=== PATIENT | female | born 1940 ===

== ENCOUNTER 2017-02-23 12:30 | Inpatient (IN) | payer MEDICARE, OTHER ==
[~2017-02-23] VITALS: Ht 163.8 cm; Wt 90.2 kg
--- NOTE | ~2017-02-23 | DS ---
PATIENT'S NAME: KAI POTTS [facility] AGE: 76 Y [address] ROOM: [address] [place], [place] [address] [facility]ATION: [facility] ADMIT DATE: 02/23/2017 Discharge Summary DISCHARGE DATE: 02/26/2017 FAMILY PHYSICIAN: Mindy Ngo APRN ATTENDING PHYSICIAN: Kei Coppola CONSULTING PHYSICIANS: 1. Alexander Tan MD. 2. Ronnie Banks MD. DISCHARGE DIAGNOSES: 1. Right thalamic infarct with left hemiparesis. 2. Accelerated hypertension with permissive hypertension. 3. Hypernatremia, resolved. 4. Acute kidney injury, resolved. HOSPITAL COURSE: Please refer to admitting history and physical as dictated by Dr. Coppola. Briefly, the patient was admitted to [facility] with left hemiparesis. Outside hospital CT scan showed a right thalamic infarct. She was not a candidate for tPA. She had accelerated hypertension. This was allowed to continue for permissive hypertension. Echocardiogram was done which did show an EF of 60%, left atrium mildly dilated, grade 1 diastolic dysfunction. Carotid Dopplers were obtained which showed no evidence of internal carotid artery plaque or stenosis on the right. Left internal carotid artery was mild 1-39% plaque and stenosis. PT, OT and ST were all consulted. She was placed on heparin for DVT prophylaxis. Dr. Banks did see the patient and did accept the patient to inpatient rehab. She was placed on a baby aspirin and atorvastatin. On 02/24/2017, the patient's blood pressure was noted to be greater than 200. She was given a 1 time dose of felodipine 5 mg. Her pressures then dropped systolically into the 160s and she was dizzy. She was noted to have increased left-sided weakness. She was given saline and her pressures did come back up. Her dizziness resolved. Her left-sided weakness did return to baseline. It was recommended that we decrease her blood pressure very slowly. She was started on bowel regimen. On 02/25/2017, she was given a dose of amlodipine 2.5 mg p.o. daily. The following day this was increased to 5 mg p.o. daily. Her systolic blood pressure ranged from 163-200 on the day of discharge. She continued to have left hemiparesis. She was working with therapies. Her vital signs were stable. She was afebrile. It was felt as though she was stable to be transferred to [facility] inpatient Rehab. LABORATORY DATA: Sodium 144 to 145, potassium 3.7, BUN 16 to 20, creatinine 1.0 to 1.1. Total cholesterol 157, triglycerides 65, LDL 87. Troponin less than 0.040 upon admit then 0.047. Hemoglobin A1c 6.2, WBC 10.6, hemoglobin 13.2, hematocrit 41.8. PATIENT'S NAME: KAI POTTS [facility] AGE: 76 Y [address] ROOM: [place] [address] LOCATION: [facility] ADMIT DATE: 02/23/2017 Discharge Summary DISCHARGE DATE: 02/26/2017 FAMILY PHYSICIAN: Mindy Ngo APRN ATTENDING PHYSICIAN: Kei Coppola RADIOLOGY DATA: Please refer to hospital course. DISCHARGE INSTRUCTIONS: 1. The patient will be discharged to [facility] inpatient rehab by Dr. Banks to follow. 2. Diet regular. 3. Weightbearing as tolerated with assistance. 4. PT, OT, ST to evaluate and treat as indicated. 5. Oxygen as needed to keep sats greater than 90%. 6. Call hospitalist if the systolic blood pressure is greater than 200. 7. Rehab potential good. 8. Discharge potential good. DISCHARGE MEDICATIONS: 1. Norvasc 5 mg p.o. daily. Hold if systolic blood pressure is less than 110. 2. Aspirin 81 mg p.o. daily. 3. Lipitor 40 mg p.o. daily. 4. Colace 100 mg p.o. daily. 5. Heparin 5000 units subcu t.i.d. 6. Protonix 40 mg p.o. daily. 7. MiraLax 17 g p.o. daily. 8. Tylenol 650 mg p.o. every 4 hours as needed for pain. 9. Milk of magnesia 30 mL p.o. daily p.r.n. constipation. 10. Multivitamin 1 tablet p.o. daily. 11. [place] nasal spray 2 sprays each nares as needed. 12. Metformin 500 mg p.o. b.i.d. Thank you for allowing us to participate in the care of this patient as she has been hospitalized at [facility]. HARISH NASH APRN FOR MD PHILIP BRENNAN/modl /[id number] d: 02/27/17 0519 t: 03/07/17 1507, DISCHARGE SUMMARY
--- NOTE | ~2017-02-23 | CON ---
PATIENT'S NAME: KATLYN [facility] AGE: 76 Y [address] ROOM: [address] [address] LOCATION: [facility] ADMIT DATE: 02/23/2017 Consultation DISCHARGE DATE: FAMILY PHYSICIAN: Mindy Ngo APRN ATTENDING PHYSICIAN: LUIS ROJAS REFERRING PHYSICIAN: LIONEL VILLANUEVA MD Consult for Dr. Rojas, hospitalist. HISTORY OF PRESENT ILLNESS: This pleasant 76-year-old lady who lives alone, is referred for rehab evaluation, was admitted on 02/23/2017 with sudden onset of left-sided weakness. She could not sustain herself on standing and she fell down, but did not hit her head and she did not hurt herself. Denied any headache. No double vision. No blurred vision. Denied any dizziness. No previous condition like that. Denied any previous trauma. Her CT scan of the brain at a local hospital showed lacunar right-sided infarct in right thalamus. At the present time, she is alert. Denied any pain. No abdominal pain. No shortness of breath. No chest pain. No cough. No expectoration. She was evaluated on admission and was found to be hypertensive, now it is controlled. PHYSICAL EXAMINATION: VITAL SIGNS: Vitals are stable. Please see the nurse's notes. NEUROLOGIC: She feels well and can follow instructions. She is able to express herself, answers questions correctly, but slightly slow, hesitates until she can answer. I could not see facial droop at the present time. No visual neglect. Her voice is clear and not wet. Pupils are reacting equally. Tongue and soft palate are moving symmetrical. No nystagmus. No vertigo. MUSCULOSKELETAL: Cannot move her left upper extremity and is weaker also in the left lower extremity. Muscle strength in the left lower extremity is about 3 to 3+, but with marked decreased endurance. She is without dorsiflexors on the left side. GENITOURINARY: Good bladder and bowel control so far. MEDICATIONS: She is on, 1. Heparin sodium. 2. Lipitor. 3. Apresoline. 4. Tylenol. [facility]GE: 76 Y [address] ROOM: [address] [address] LOCATION: [facility] ADMIT DATE: 02/23/2017 Consultation DISCHARGE DATE: FAMILY PHYSICIAN: Mindy Ngo APRN ATTENDING PHYSICIAN: LUIS ROJAS 5. NaCl 0.9%. 6. Aspirin. 7. Protonix. ASSESSMENT AND PLAN: I will continue her on PT, OT, and Speech, which she has been already initiated. I will take her to intensive rehabilitation to [facility] as soon as I can. Thank you for this referral. She will be with me for about 2 weeks or so aiming to discharge home at [facility] with recommendations. All the above was explained to her and her family. They verbalized understanding and in agreement. MD RODRIGUEZ BLAKELY/modl /[id number] d: 02/24/172058 t: 02/25/17 0828, CONSULTATION REPORT
--- NOTE | ~2017-02-23 | HP ---
PATIENT'S NAME: KAI POTTS [facility] AGE: 76 Y [address] ROOM: [address] [place], [place] [address] LOCATION: [facility] ADMIT DATE: 02/23/2017 History & Physical DISCHARGE DATE: FAMILY PHYSICIAN: PHYSICIAN, UNKNOWN ATTENDING PHYSICIAN: LUIS ROJAS DATE OF SERVICE: CHIEF COMPLAINT: Left-sided weakness. HISTORY OF PRESENT ILLNESS: This is a 76-year-old female with no significant past medical history, who is transferred from [place] after the patient was accepted by Dr. Tan for further evaluation of her new onset stroke, history as obtained from the patient. She reported that at 7 a.m. this morning when she got out of bed to walk she noticed that her left side was unable to sustain her weight, so she fell on her left side. She reports that it took her about 45 minutes to try and get up and it was thereafter she noticed that her whole left side was weak and she thought most likely she has had a stroke. The last time which patient was seen to be well was around 10 p.m. last night. She reported that before she went into to bed last night. She denied any symptoms of headache, dizziness, blurry of vision, or lightheadedness. She reports that she was in her usual state of health before she went to bed last night, only to wake up this morning and discovered that she was unable to walk after getting out of bed. She reported after she fell she called her daughter who subsequently called the doctor and her daughter was subsequently came from [place] to take her into the hospital. At the hospital, she had a CT head done which showed an area of lacunar infarct in the right thalamus. The patient when she fell, she denied any head trauma. She denies any chest pain. Denies abdominal pain. Denies shortness of breath. Denies neck pain or back pain after the fall. She reports that the last time she went in to see a healthcare provider was at least five years ago. She denies fever, cough, or urinary symptoms. On arrival to the emergency room at [place], the patient was found to be hypertensive with systolic greater than 200 and she was given 5 mg of Lopressor and thereafter Dr. Tan was contacted and he recommended for the blood pressure not to be to aggressively reduced and to allow for permissive hypertension. NIH stroke scale was 6 on arrival to the emergency room at [place]. REVIEW OF SYSTEMS: The 13 elements of review of systems were asked and as documented in the HPI. The others are negative. PATIENT'S NAME: KAI POTTS [facility] AGE: 76 Y [address] ROOM: [address] [address] LOCATION: [facility] ADMIT DATE: 02/23/2017 History & Physical DISCHARGE DATE: FAMILY PHYSICIAN: PHYSICIAN, UNKNOWN ATTENDING PHYSICIAN: LUIS ROJAS PAST MEDICAL HISTORY: None. PAST SURGICAL HISTORY: None, as per patient. SOCIAL HISTORY: Lives on her own. Denies history of smoking. Denies use of alcohol. FAMILY HISTORY: Mother in her 80s, 80-83. Father in his 70s from heart problem. PHYSICAL EXAMINATION: VITAL SIGNS: In Neuro Trauma, pulse 85, oxygen saturation 93%, blood pressure 218/101, respiratory rate 12. GENERAL: Reveals a very pleasant, elderly female who is alert, awake, oriented x3, with the little dysarthria to her speech. Power is at least 4/5 in both upper and lower extremities. Power in the left upper extremity at 3. Power in the left lower extremity is at 3. Group muscle power, hand joist setter on the left upper extremity is likely 2. Sensory is intact. HEENT: Normocephalic, atraumatic. Pupils equal and reactive to light bilaterally. Pharynx is normal. Mucosa is moist. Ear, no obvious ear discharge or drainage. NECK: Supple. No area of tenderness. No lymphadenopathy. CARDIOVASCULAR: Normal S1, S2. Tachycardia. CHEST: Clear to auscultation bilaterally. ABDOMEN: Soft, slightly obese. No area of tenderness. No palpable organomegaly. Positive bowel sounds. EXTREMITIES: There is no joint swelling, erythema, or tenderness. SKIN: No rash or skin breakdown. DIAGNOSTIC DATA: CT of the head without contrast, impression, age indeterminate ovoid 8 mm lacunar infarct, right thalamus, no large transcortical infarct or hemorrhage, mild cerebral volume loss, mild ethmoid sinusitis. Blood work WBC 11.4, H and H 15.2/45, platelet is 260,000, INR is 0.96. Sodium 147, chloride 108, bicarb 23, glucose 123, BUN 20, creatinine 1.47. Calcium 9.3, total protein 7.7, albumin 4.2, ALT 35, AST 37, TSH 1.87, free T4 0.9. EKG is sinus rhythm with occasional PVCs. ASSESSMENT AND PLAN: 1. Right thalamic ischemic stroke present on admission. We will manage the patient as per the stroke order set. We will follow recommendations per PATIENT'S NAME: KAI POTTS [facility] AGE: 76 Y [address] ROOM: [address] [address] LOCATION: [facility] ADMIT DATE: 02/23/2017 History & Physical DISCHARGE DATE: FAMILY PHYSICIAN: PHYSICIAN, UNKNOWN ATTENDING PHYSICIAN: LUIS ROJAS Dr., will do bilateral carotid duplex scan. We will also do an echocardiogram. 2. Left hemiparesis present on admission secondary to right thalamic stroke. We will recommend to begin physical and occupational therapy. 3. Accelerated hypertension. Will allow for permissive hypertension. We will start the patient on normal saline. 4. Hypernatremia present on admission. Probably secondary to insensible water loss. However, we cannot give the patient D5 water right now given the moderate size of the area of ischemia in order to prevent cerebral edema. 5. Acute kidney injury present on admission, likely prerenal from dehydration. We will gently hydrate the patient and monitor the creatinine. 6. Hemoconcentration present on admission from probably insensible water loss. We will continue the patient hydration and recheck with her H and H. The line of management was explained to the patient who did not have any questions at this time. MD QI GRESHAM/janay /[id number] D: T: HISTORY & PHYSICAL
--- NOTE | ~2017-02-23 | ECHO ---
Transthoracic Echocardiography Report (TTE) Demographics Patient Name KAI POTTS Date of Study 02/23/2017 Patient Number [id number] Visit Number [id number] Date of 1940 Room Number G6217 Gender Female Number Age 76 year(s) Referring Abdon Tomas Boatswains Mate Reji Bautista Physician MD Enrike Heaton [facility], RVT Physician Interpreting Luann Mclaughlin MD Nail Polish Brush Machine Feeder Physician Supervising Ordering Abdon Tomas MD/MLP Physician MD Nurse Stress Enforcement Manager Conclusions Contractility Score Summary Normal Left Ventricular contractility was noted. Summary The estimated left ventricular ejection fraction is 60%. The left ventricle is normal in size . Moderate concentric left ventricular hypertrophy. Diastolic assessment reveals Grade I diastolic dysfunction. The left atrium is mildly dilated. Mild thickening of the mitral valve leaflets. Trivial mitral regurgitation by color Doppler. Patient is noted to be in normal sinus rhythm throughout this study The left ventricle is normal in size . Moderate concentric left ventricular hypertrophy. Diastolic assessment reveals Grade I diastolic dysfunction. No evidence of echo density to suggest thrombus Procedure Type of Study TTE procedure:2D Echocardiogram, M-Mode, Doppler , Color Doppler. Procedure Date Date: 02/23/2017 Start: 02:34 PM Study Location: Inpatient Portable Technical Quality: Adequate visualization Indications:CVA. Appropriate Use Criteria: 9 Patient Status: Routine HR: 99 bpm BP: 218/101 mmHg M-Mode/2D Measurements LV Diastolic Dimension: 4.9 cm LV Systolic Dimension: 3.33 cm LV Septum Diastolic: 1.42 cm LV PW Diastolic: 1.43 cm AO Root Dimension: 2.7 cm Cardiac Output: 4.88 l/min AV Cusp Separation: 1.7 cm RV Diastolic Dimension: 3.09 cm LA volume: 56 ml LVOT: 1.8 cm RV Base: 2.89 cm LVOT VTI: 19.4 cm RV Mid: 1.62 cm LV Stroke volume: 49.34 ml TAPSE: 2.2 cm TDI-S': 19.2 cm/s Doppler Measurements AV Peak Velocity: 1.62 m/s MV Peak E-Wave: 0.95 m/s AV Peak Gradient: 10.5 mmHg MV Peak A-Wave: 1.3 m/s AV Mean Gradient: 6 mmHg MV E/A Ratio: 0.73 LVOT Peak Velocity: 1.23 m/s MV P1/2t: 59 msec TR Gradient:11.83 mmHg PV Peak Velocity: 1.01 m/s Estimated RAP:3 mmHg PV Peak Gradient: 4.08 mmHg Estimated RVSP: 15 mmHg Estimated PASP: 14.83 mmHg E' Septal Velocity: 0.05 m/s A' Septal Velocity: 0.13 m/s E' Lateral Velocity: 0.05 m/s A' Lateral Velocity: 0.15 m/s Findings Left Ventricle Moderate concentric left ventricular hypertrophy. Diastolic assessment reveals Grade I diastolic dysfunction. No evidence of echo density to suggest thrombus Right Ventricle Normal right ventricle structure and function. Left Atrium Normal left atrial size. Right Atrium Normal right atrial size. IVC measures 1.86 cm with inspiratory collapse. Mitral Valve Mild thickening of the mitral valve leaflets. Trivial mitral regurgitation by color Doppler. Aortic Valve The aortic valve is mildly sclerotic. Tricuspid Valve Trivial tricuspid regurgitation by color Doppler. Pulmonic Valve Normal pulmonic valve structure and function. Pericardial Effusion No evidence of pericardial effusion. Miscellaneous Patient is noted to be in normal sinus rhythm throughout this study Pleural Effusion No evidence of pleural effusion. Contractility Score LV regional wall motion:(0-Non visualized 1-Normal 2-Hypokinesis 3-Akinesis 4-Dyskinesis 5-Aneurysm) Signature dtt: Arnoldo Kong (cardio) dtd: 02/23/17 4810 Physician Self Edit
--- NOTE | ~2017-02-23 | CON ---
PATIENT'S NAME: KAI POTTS [facility] AGE: 76 Y [address] ROOM: [address] [place], [place] [address] LOCATION: [facility] ADMIT DATE: 02/23/2017 Consultation DISCHARGE DATE: 02/26/2017 FAMILY PHYSICIAN: Mindy Ngo APRN ATTENDING PHYSICIAN: Kei Coppola DATE OF CONSULTATION: 02/23/2017 REFERRING PHYSICIAN: Alexander Tan MD NEUROLOGICAL CONSULTATION DATE AND TIME: 02/23/2017 at 5:25 p.m. CHIEF COMPLAINT/REASON FOR CONSULTATION: Left-sided weakness. HISTORY OF PRESENT ILLNESS: This is a 76-year-old female, who presents with no significant past medical history. She has been transferred from [facility] after the physician there talked to Dr. Tan for further evaluation for her new-onset stroke. She reported that at 7:00 a.m. this morning, when she got out of bed, she noticed that she was leaning to her left side and her left side was unable to sustain her weight and so she did fall. She stated it took her about 45 minutes to get up and therefore noticed her whole left side was weak and she thought most likely she had a stroke. The last time the patient was known to be well was 10:00 p.m. last night. She denied any symptoms of headache, dizziness, blurry of vision, or lightheadedness. She has been in her usual state of health and denies any recent illnesses. After her fall, she went to the hospital in [place] where she had a CT which showed an area of lacunar infarct in the right thalamus. She denies any trauma from the fall. She denies any chest pain, shortness of breath, abdominal pain, or change in vision. Denies any neck pain or back pain after the fall. She is not a health care seeking individual and the last time she went to a physician was over five years ago. On arrival to the ED room in [place], the patient was found to be hypertensive with a systolic greater than 200 and she was given [address] Tan did inform them to not be too aggressive with the blood pressure and allow for permissive hypertension. Her NIH Stroke Scale as reported from [place] was a 6. REVIEW OF SYSTEMS: All systems were reviewed and are negative except as noted in the HPI. PAST MEDICAL HISTORY: None, however, not a health seeking individual. PATIENT'S NAME: KAI POTTS [facility] AGE: 76 Y [address] ROOM: [address] [place], [place] [address] LOCATION: [facility] ADMIT DATE: 02/23/2017 Consultation DISCHARGE DATE: 02/26/2017 FAMILY PHYSICIAN: Mindy Ngo APRN ATTENDING PHYSICIAN: Kei Coppola PAST SURGICAL HISTORY: None. SOCIAL HISTORY: Lives on her own. Denies history of smoking or alcohol use. FAMILY HISTORY: Mother in her 80s and her father in his 70s from cardiac issues. PHYSICAL EXAMINATION: VITAL SIGNS: Her pulse is 86, oxygen saturations 94% on room air. Her blood pressure is 194/68, and her respiratory rate is 14. GENERAL: Very pleasant, elderly female, who is alert, awake, and oriented. She cooperates with the exam. HEENT: Head is normocephalic and atraumatic. Pupils are equal and reactive to light. NECK: Supple with no nuchal rigidity. No carotid bruits auscultated. CARDIOVASCULAR: Normal S1 and S2. CHEST: Clear to auscultation bilaterally. ABDOMEN: Soft and obese. No tenderness noted. SKIN: No rash or breakdown. NEUROLOGIC: She is alert and oriented x4. She is relatively good historian. Her cranial nerves 2 through 12 are intact. Her NIH Stroke Scale is as follows: 1. Level of consciousness: Zero. 2. Current month and age: Zero. 3. Open and close eyes: Zero. 4. Best gaze: Zero. 5. Visual field testing: Zero. 6. Facial paresis: Zero. 7. Motor function, left arm: One. 8. Motor function, right arm: Zero. 9. Motor function, left leg: One. 10. Motor function, right leg: Zero. 11. Limb ataxia: One. 12. Sensory: Zero. 13. Language: Zero. 14. Dysarthria: One for a total NIH Stroke Score of 4. DIAGNOSTIC DATA: A CT of the head without contrast was done at the [facility]. There was an age-indeterminate ovoid 8-mm lacunar infarct in the right thalamus. There was no hemorrhage noted. There was mild volume loss and mild ethmoid sinusitis. Her EKG shows sinus rhythm with occasional PVCs. PATIENT'S NAME: KAI POTTS [facility] AGE: 76 Y [address] ROOM: [address] [place], [place] [address] LOCATION: [facility] ADMIT DATE: 02/23/2017 Consultation DISCHARGE DATE: 02/26/2017 FAMILY PHYSICIAN: Mindy Ngo APRN ATTENDING PHYSICIAN: Kei Coppola ASSESSMENT AND PLAN: 1. Right thalamic ischemic stroke present on admission. The patient will be worked up using the stroke order set, and we will get an echocardiogram and a carotid study done. We will also get a lipid panel completed. We will continue and get Physical, Occupational, and Speech Therapy involved as well as an evaluation by Dr. Banks for rehabilitation. 2. Accelerated hypertension. For now, we will allow for permissive hypertension. Normal saline will be used to keep the blood pressure up. 3. The plan of care was discussed with Dr. Tan and the patient. The patient voices no questions. We would like to thank you for the opportunity to participate in this patient's plan of care. MARTIN ARAUJO APRN FOR ALEXANDER TAN MD PP/harishl /[id number] d: 03/19/171729 t: 04/02/17 173, CONSULTATION REPORT
[2017-02-23] MEDS ORDERED: THERAGRAN-M1 TAB PO (14:00)
--- NOTE | 2017-02-23 14:22 | NUR ---
PT is 76 y/o female admit for stroke for hospitalist. Neurology to consult. No allergies. Pt has little health hx. No home meds. Wears glasses and resides at home by herself. Came via flight from [facility]. Pt states she fell getting out of bed this am and her left side wouldn't work. Has some left sided weakness. Speech clear currently.
--- NOTE | 2017-02-23 15:53 | NUR ---
Attempted to evaluate, nursing assessing. Will f/u in am. Thanks
--- NOTE | 2017-02-23 17:37 | NUR ---
Significant Event: PT ADMITTED TO THE FLOOR AT 1320 FROM [facility], VIA [facility]. PT STATED THAT SHE WENT TO BED LAST NIGHT ABOUT 2200. SHE WOKE UP ABOUT 0700 WITH L)SIDED WEAKNESS, L)FACIAL DROOP AND SLURRED SPEECH. SHE WAS TRYING TO GET OUT OF BED AND FELL ON THE FLOOR. STATED THAT SHE DID NOT HIT HER HEAD. THE PT'S DAUGHTER BROUGHT HER TO ER IN [place] AND THE PT WAS TRANSFERRED TO [facility] FOR HIGHER LEVEL OF CARE. PT IS ALERT AND ORIENTED X3. PERRLA. NIH-SS ON ADMISSION WAS A 4. L)SIDE IS WEAKER THAN R)SIDE; L)LEG/ARM DRIFT NOTED. SLIGHTLY SLURRED SPEECH AT TIMES. HYPERTENSIVE ON ADMIT WITH SBP'S IN THE 200'S. IV HYDRALAZINE GIVEN AND FOLLOW-UP BP WAS 176/80. SBP GOAL IS <200. 1+GENERALIZED EDEMA; 2+EDEMA TO BILATERAL LOWER ANKLES/FEET. NO COMPLAINTS OF PAIN. Q6H ACCUCHECKS PER STROKE ORDERS. CAROTID DOPPLERS AND ECHO DONE TODAY. IV'S TO R)UPPER ARM AND R)HAND INTACT; IV FLUIDS INFUSING AT 75 ML/HR. PT PASSED BEDSIDE SWALLOW STUDY; REGULAR DIET. TAKES MEDICATIONS WHOLE WITH WATER. FAMILY HAS BEEN AT BEDSIDE. Follow up: TO SEE THE PT FOR NEUROLOGY, MONITOR BP
[2017-02-24 04:01] LABS: BASOPHIL # 0.1 K/uL (0.0-0.2); BASOPHIL % 0.6 %; EOSINOPHIL # 0.1 K/uL (0.0-0.5); EOSINOPHIL % 0.8 %; HEMATOCRIT 41.8 % (33.0-46.0); HEMOGLOBIN 13.2 g/dL (10.0-15.0); IMMATURE GRANULOCYTE % 0.4 %; LYMPHOCYTE # 1.7 K/uL (0.8-4.0); LYMPHOCYTE % 15.9 %; MCH 29.2 pg (27.0-34.0); MCHC 31.6 gm/dL (32.0-36.5); MCV 92.5 fl (83.0-98.0); MONOCYTE # 0.7 K/uL (0.0-1.0); MONOCYTE % 6.8 %; MPV 9.5 fl (9.4-12.4); NEUTROPHIL % 75.5 %; NRBC % 0 /100WBC (0-0.00); PLATELET COUNT 227 K/uL (150-450); RBC 4.52 M/uL (3.50-5.50); RDW-CV 12.9 % (11.9-14.6); WBC 10.6 K/uL (4.0-11.0)
[2017-02-24 04:17] LABS: ANION GAP 10.7 (10.0-19.0); CALCIUM 8.4 mg/dL (8.5-10.5); CREATININE 1.1 mg/dL (0.5-1.1); MAGNESIUM 2.3 mg/dL (1.8-2.6); POTASSIUM 3.7 mMol/L (3.7-5.1)
--- NOTE | 2017-02-24 05:55 | NUR ---
Significant event: Patient is alert and oriented x 3. Denies pain, numbness or tingling. NIHSS-3. Left side is weaker. Drift noted and slightly slurred speech. Ataxia. PERRL. Moves spontaneously and follows commands. HTN, 170s-190s. Generalized edema. SR. Afebrile. VSS. On room air. Lungs clear and diminished in the bases. Voids per commode 2PA, gait belt, walker. IV to right infusing NS at 75 mL/hr. Regular diet. Family at bedside. SCDs in place. On heparin. Follow up: NIHSS, activity
--- NOTE | 2017-02-24 08:53 | NUR ---
CONSULT RECEIVED PER ROUTINE STROKE ORDERS. WILL PROVIDE DIET ED APPROPRIATE PRIOR TO D/C.
--- NOTE | 2017-02-24 13:00 | NUR ---
Received call from Carmen on [facility] and Dr. Banks assessed patient and says she is a good candidate for [facility]. [facility] would have a bed at 1100 tomorrow. Introduced self and role of care management to patient and her daughter. Patient lives alone in her own home in [place]. Daughter lives in [place]. Talked with them about need for therapy and options. Patient says she would like to go to inpatient rehab for the more intense therapy and daughter agrees. Plan is for transfer to [facility] tomorrow 02/25 at 1100 as long as has not needed IV meds for BP in the last 24 hrs. Will follow.
--- NOTE | 2017-02-24 17:24 | NUR ---
Significant Event: A/Ox3. Ambulates 2 assist with walker and gait belt. Drift to left arm/leg. Patient is able to lift left leg and left arm but unable to wiggle toes or fingers to left side. Hydralazine given x1 for SBP >200 and SBP now 160's. Gave patient shower this afternoon and edema glove removed to left hand. Swallows without difficulty. Mild aphasia at times. Follow up: [facility] tomorrow at 1100
--- NOTE | 2017-02-24 17:59 | NUR ---
02/24/17: MADHAVI TEJEDA,RN HAS READ/REVIEWED RENZO ARMENDARIZ'S RN CHARTING AND AGREES.
[2017-02-25 05:05] LABS: ANION GAP 9.7 (10.0-19.0); CALCIUM 8.2 mg/dL (8.5-10.5); POTASSIUM 3.7 mMol/L (3.7-5.1)
--- NOTE | 2017-02-25 07:28 | NUR ---
Significant Event: PATIENT IS ALERT AND ORIENTED X3. FOLLOWS COMMANDS. DENIES OLIVO, N/T. SLURRED SPEECH. LEFT ARM AND LEG WEAK. PERRLA. SINUS RHYTHM-EDEMA TO BLE. KEEP SBP LESS THAN 210- IF > THAN 210 CALL MD. ROOM AIR. REGULAR DIET-TAKES PILLS WHOLE WITH WATER. LAST BM-02/22- REQUEST BM MEDICATIONS. 2A GB/WALKER. RIGHT IVF WITH N.S. AT 75 ML/HR. EDEMA GLOVE TO THE LEFT HAND. LAST ASSESSMENT PATIENT HAD BECAME DIZZY AND WAS EXPERIENCING AN INCREASE IN WEAKNESS TO THE LEFT SIDE. NEEDED TO TRANSFER WITH W/C. SBP WAS 160'S-1L NORMAL SALINE BOLUS GIVEN. Follow up: [facility].
--- NOTE | 2017-02-25 10:15 | NUR ---
Received call this a.m. from Nuris Noel APRN and she says patient not medically stable today for transfer and has received hydralazine IV. She thinks patient will be ready tomorrow. Talked to Carmen on [facility] and updated her and they can accept patient tomorrow. Will update patient. Patient to transfer to [facility] on Monday 02/26 if medically stable. Will follow.
--- NOTE | 2017-02-25 14:00 | NUR ---
Significant Event:PT IS AAOX3. NIHSS 8. PERRLA. LEFT ARM AND LEG ARE WEAK. IS ABLE TO LIFT ARM SLIGHTLY AT TIMES. IT IS HIT OR MISS. NO NUMBNESS OR TINGLING. CLEAR AND DIMINISHED LUNG SOUNDS. ACTIVE BS. +1-2 EDEMA TO LOWER EXTREMITIES. RED AND SLIGHTLY EXCORIATED UNDER BREASTS. PIV TO R) NECK SL'D. STARTED NORVASC TODAY AND DC FELODIPINE. ACCU CHECKS DC'D. COLACE AND MIRALAX STARTED. Follow up:[facility]
--- NOTE | 2017-02-26 02:22 | NUR ---
Significant Event: Patient is alert and oriented x3. Follows commands. VSS. PERRLA. Denies OLIVO, N/T, and pain. Does have occasional-slight slurred speech. NIHSS-7. Left sided weakness. Sinus rhythm-SBP have been stable this shift-no medications given. Edema-BLE. Room air. Diet regular-last BM 02/22- medications given. 2a GB/walker. PIV in right jugular. Follow up: [facility] today.
--- NOTE | 2017-02-26 08:48 | NUR ---
PATIENT IS 76 YEAR OLD FEMALE WHO IS FROM [place]. WOKE UP AND FELL OUT OF BED. LEFT SIDE NOT WORKING. HAD LEFT FACIAL DROOP. WENT TO HOSPITAL THEIR AND WAS FLOWN HERE. PUPIL ARE EQUAL AND BRISK. IS ABLE TO RAISE LEFT ARM SLIGHTLY AND LEFT LEG. NO HAND GRASP. UNABLE TO WIGGLE TOES. NIHSS 8. DOES HAVE SOME SLURRED SPEECH WHEN TALKING FAST. CLEAR AND DIMINISHED LUNG SOUNDS ON RA. ACTIVE BS. GAVE MOM TODAY. LAST BM 02/22. HAS MOISTURE SLIT UNDER RIGHT BREAST OTHERWISE RED UNDER BOTH BREAST. TAKES MEDS WHOLE. 2 ASSIST PIVOT. PLANS FOR [facility].
--- NOTE | 2017-02-26 09:15 | NUR ---
Several calls with patient's nurse. Nuris Noel APRN says patient ready for transfert to [facility] today. Spoke with Wen on [facility] and patient can transfer to them today. Spoke with patient's nurse and updated her and she will update Nuris Noel. Patient to transfer to [facility] today. Nurse will call nurse to nurse report.
== END 2017-02-26 10:35 | DRG 65 ==
LOC: GNTU 13:32
PROVIDERS: Nurse Practitioner Family; ADMIT Hospitalist
DX: I63.211 Cerebral infarction due to unspecified occlusion or stenosis of right vertebral artery (principal); E87.0 Hyperosmolality and hypernatremia; N17.9 Acute kidney failure, unspecified; G81.94 Hemiplegia, unspecified affecting left nondominant side; I10 Essential (primary) hypertension; E86.0 Dehydration; I51.9 Heart disease, unspecified
CPT/HCPCS: C9113; J0360; J1644; J7030

== ENCOUNTER → 2017-02-23 | Outpatient (CLI) | payer MEDICARE, OTHER ==
[~2017-02-23] MED LIST: ASPIRIN (CHILDR81 MG PO; COLACE100 MG PO; GLUCOPHAGE500 MG PO; LIPITOR40 MG PO; LOPRESSOR25 MG PO; MIRALAX17 GM PO; NORVASC10 MG PO; PRINIVIL OR ZES10 MG PO; PROTONIX40 MG PO; THERAGRAN-M1 TAB PO; TYLENOL325 MG PO
== END | disposition disaster alternative care site (69) ==
LOC: GAIR 12:26
DX: I63.9 Cerebral infarction, unspecified (principal); R53.1 Weakness
CPT/HCPCS: A0422; A0431; A0436

== ENCOUNTER 2017-02-26 10:36 | Inpatient (IN) | payer MEDICARE ==
[~2017-02-26] VITALS: Ht 162.6 cm; Wt 86.0 kg
--- NOTE | ~2017-02-26 | DS ---
PATIENT'S NAME: KATLYN KAI [facility] AGE: 76 Y [address] ROOM: [id number] [place], [place] [address] LOCATION: [facility] ADMIT DATE: 02/26/2017 Discharge Summary DISCHARGE DATE: 03/26/2017 FAMILY PHYSICIAN: Mindy Ngo APRN ATTENDING PHYSICIAN: Ronnie Banks This 76-year-old lady was admitted to Rehab Unit at [facility] in [place], [place] on 02/26/2017, is discharged to go home on outpatient therapy, PT/OT, and speech on 03/26/2017. She was admitted with left hemiplegia secondary to right thalamic ischemic stroke and with some speech slurring. She was put on intensive PT, OT, and speech and made good progress. She is able to ambulate up to 300 feet x1 and is going to go on outpatient PT, OT, and speech 2 to 3 times per week for the coming 4 weeks. I will see her thereafter. She should follow with her family physician as soon as possible. She is at this time alert and oriented. VITAL SIGNS: Blood pressure 142/59, temperature 98.1, pulse 73, respirations 18. She is not to drive and/or operate any mechanical device until she is re- evaluated. MEDICATIONS: She is at the present time being put on the following medications: 1. Norvasc 10 mg p.o. daily. 2. Aspirin 81 mg p.o. daily. 3. Lipitor 40 mg p.o. daily. 4. Colace 100 mg p.o. daily. 5. 10 mg p.o. daily. 6. Glucophage mg p.o. daily. 7. Lopressor 12.5 mg p.o. b.i.d. 8. Protonix 40 mg p.o. daily. 9. MiraLAX 17 g p.o. daily. 10. Tylenol 650 q.6 hours, do not exceed acetaminophen 4 g days. 11. Theragran-M 1 tablet p.o. daily. FINAL DIAGNOSES: 1. Unstable gait. PAT[facility] AGE: 76 Y [address] ROOM: [address] [address] LOCATION: [facility] ADMIT DATE: 02/26/2017 Discharge Summary DISCHARGE DATE: 03/26/2017 FAMILY PHYSICIAN: Mindy Ngo APRN ATTENDING PHYSICIAN: Ronnie Banks 2. Dependent activities of daily and self-care. 3. Difficulty with speech. 4. Status post left hemiplegia secondary to CVA with speech difficulty secondary to ischemic right thalamic stroke. 5. Hypertension. 6. Status post acute kidney injury, stable now. 7. Allergic rhinitis, stable now. 8. Reflux gastric disease, stable. 9. Diabetes type 2. She will need to have as per recommendation of talend etl developer while she was here to have outpatient dinker for 30 days upon discharge. We will follow on that. She should follow with her family physician as soon as possible. Medications, as per discharge summary and any change and/or addition and/or renewal is according to her family physician. I will see her in 4 weeks. All the above was explained to her in detail. She verbalized understanding and in agreement. RONNIE BANKS MD WMS/modl /[id number] d: 03/26/17 0219 t: 03/26/17 0801, DISCHARGE SUMMARY
--- NOTE | ~2017-02-26 | CON ---
PATIENT'S NAME: KAI POTTS [facility] AGE: 76 Y [address] ROOM: [id number] [place], [place] [address] LOCATION: [facility] ADMIT DATE: 02/26/2017 Consultation DISCHARGE DATE: 03/26/2017 FAMILY PHYSICIAN: Mindy Ngo APRN ATTENDING PHYSICIAN: Ronnie Foy DATE OF CONSULTATION: 03/23/2017 REFERRING PHYSICIAN: Kei Coppola MD Team members reporting include Dr. Foy; Carmen Sandoval, geriatric social work professor; Ana Cristina Murray, RN; Padmini Alberto, PT; Melanie Martino, PT; So Patton, OT; Pat Guevara, Speech Therapy; Nathalie Rincon, therapeutic rec; and Sister Shakira Kunz, Pastoral Care. CURRENT STATUS: Deandre Addison is a 76-year-old woman, admitted to our inpatient rehab unit following a CVA. The patient is continent of bowel and bladder. She does have generalized bruising. No pain issues. She can transfer sit to supine and supine to sit independently; sit to stand and stand to sit, and bed to chair and chair to bed, mod I. She can walk 600 feet with a 4-wheeled walker or front wheeled walker at standby assistance. Occasionally, her left knee does buckle. The patient can climb 12 stairs with 2 railings at standby assistance. She does have an AFO for her left foot. She can dress her upper and lower body at standby; difficulty getting GIOVANNI hose on, however, Dr. Foy does not feel she will need those GIOVANNI hose when she goes home; grooming mod I; bathing standby assistance; toilet transfers and shower transfers, standby; toileting, standby; feeding, mod I; home management tasks, standby. She has met 04/21 long-term OT goals set at mod I. The patient can complete car transfers at standby assistance. She is working on [employer] work, etc. She has been very open to pastoral care. DISCHARGE PLAN: The patient is receiving 3 hours of PT, OT, Wednesday through Wednesday. The patient has daily rehab, nursing, and physiatry involvement as well as therapeutic recreational services 4 days per week. The patient has shown functional improvement and is progressing. Please see her plan of care for specific goals. Plan is for patient to discharge on March 26, 2017, with outpatient therapy services. CARMEN SANDOVAL FOR RONNIE FOY MD TD/modl PATIENT'S NAME: KAI POTTS [facility] AGE: 76 Y [address] ROOM: [address] [place] [address] LOCATION: [facility] ADMIT DATE: 02/26/2017 Consultation DISCHARGE DATE: 03/26/2017 FAMILY PHYSICIAN: Mindy Ngo APRN ATTENDING PHYSICIAN: Ronnie Foy /[id number] d: t: 04/02/17 1444, CONSULTATION REPORT
--- NOTE | ~2017-02-26 | HP ---
PATIENT'S NAME: KATLYN [facility] AGE: 76 Y [address] ROOM: [place] [address] LOCATION: [facility] ADMIT DATE: 02/26/2017 History & Physical DISCHARGE DATE: FAMILY PHYSICIAN: Mindy Ngo APRN ATTENDING PHYSICIAN: Bibi Banks DATE OF SERVICE: This 76-year-old lady is admitted to rehab unit on 02/26/2017 for continuous medical treatment and intensive rehabilitation. 1. Unstable gait. 2. Dependent activities of daily and self-care. 3. Slurring of speech, improving. All secondary to ischemic stroke with left hemiplegia, hemiparesis. Note, I saw this lady on initial consult on 02/24/2017 and recommended intensive rehab for about 2 weeks and on day of admission, on 02/26/2017 reevaluation and I recommend intensive rehabilitation for 10-14 days aiming to discharge modified independence. She is now alert, oriented. VITAL SIGNS: Blood pressure 177/81, temperature 98.1, pulse 79, respiration rate 20. She is 5 feet and 4 inches tall and weighs 90.2 kg. ALLERGIES: NO KNOWN DRUG ALLERGIES. SHE IS AT THE PRESENT TIME ON THE FOLLOWING MEDICATIONS: 1. NORVASC 5 MG P.O. DAILY. 2. ASPIRIN 81 MG P.O. DAILY. 3. LIPITOR 40 MG P.O. DAILY. 4. COLACE 100 MG P.O. DAILY. 5. HEPARIN SODIUM 5000 UNITS SUBCU THREE TIMES DAILY. 6. PROTONIX 40 MG P.O. DAILY. 7. MIRALAX 17 G P.O. DAILY. 8. SODIUM CHLORIDE IV STOCK 250 ML 0.9%. 9. TYLENOL 650 Q.6 HOURS, DO NOT EXCEED ACETAMINOPHEN 4 G Q.24 HOURS. 10. LIDOCAINE, STARTING IV NEEDED. 11. MOM 30 ML P.O. P.R.N. NEEDED. 12. THERAGRAN-M 1 TABLET P.O. P.R.N. 13. OCEAN NASAL SPRAY 2 SPRAYS PER NOSTRIL P.R.N. NEEDED. 14. METFORMIN 500 MG P.O. B.I.D. PAST MEDICAL HISTORY: PATIENT'S NAME: KATLYN [facility] AGE: 76 Y [address] ROOM: [address] [address] LOCATION: [facility] ADMIT DATE: 02/26/2017 History & Physical DISCHARGE DATE: FAMILY PHYSICIAN: Mindy Ngo APRN ATTENDING PHYSICIAN: Bibi Banks Past history of significance is as follows. 1. History of hypertension. 2. Acute kidney injury at the present time, stable. 3. Nasal congestion on and off. 4. Reflux gastric disease. At the present time, we will put on intensive PT, OT, and speech 3 hours per day, 15 hours per week for the coming two weeks or so, aiming to discharge from modified independence. Today on 02/27/2017, she is alert, oriented, still not much functioning in the left hand and wrist, more able to move the left upper extremity proximally. Her vitals are stable and as follows. Blood pressure 157/99, temperature 98.2, pulse 75, respiration rate 20. Her Accu-Chek in a.m. is 101. CBC: White BC 8.9, RBC 4.027, hemoglobin 12.0, hematocrit 37.9, and platelets 193. CMS: Sodium 147, potassium 3.9, chloride 115, CO2 26, BUN 22, creatinine 1.0, and glucose 96. Prealbumin 17.0. ASSESSMENT AND PLAN: She is able to ambulate 125 feet x1 with front-wheeled walker and with assistance as needed. Minimum assistance at the present time. We will put on intensive PT, OT, speech, as I mentioned; 3 hours per day, 15 hours per week for about 2 weeks, aiming to discharge home on modified independence. We will keep on hospitalist and neurologist census to follow as necessary. BIBI BANKS MD WMS/modl /[id number] P D: 441 T: 821 HISTORY & PHYSICAL
--- NOTE | ~2017-02-26 | CON ---
PATIENT'S NAME: KAI POTTS [facility] AGE: 76 Y [address] ROOM: [address] [place], [place] [address] LOCATION: [facility] ADMIT DATE: 02/26/2017 Consultation DISCHARGE DATE: FAMILY PHYSICIAN: Mindy Ngo APRN ATTENDING PHYSICIAN: Ronnie Foy DATE OF CONSULTATION: 03/02/2017 REFERRING PHYSICIAN: LUIS ROJAS MD Team members reporting include Dr. Foy; Carmen Sandoval, social insurance analyst; Ana Cristina Murray, RN; Padmini Alberto, PT; Melanie Martino, PT; So Patton, OT; Pat Guevara, Speech Therapy; Nathalie Rincon, therapeutic rec; and Sister Shanhaz Campos, Pastoral Care. CURRENT STATUS: Deandre Addison is a 76-year-old woman, admitted to our inpatient rehab unit following a CVA with left-sided weakness. She has a history of hypertension, hyponatremia, and a resolved acute kidney injury. She is currently continent of bowel and bladder. She does have some bruising on her skin and some edema. No pain issues. She is on a regular diet. She can transfer sit to supine and supine to sit at minimal assistance; sit to stand and stand to sit, contact guard assistance; and bed to chair and chair to bed, contact guard assistance. She can walk 120 to 150 feet at contact guard assistance with a front-wheeled walker. She does have left foot drop. She can climb 4 stairs with 2 railings at minimal assistance and [id number] cues. The patient does have significant swelling in her feet and ankles. We did ask daughter to bring in some bigger shoes as we would like to start using an AFO for her left foot. Her goals have been set for modified independence. The patient can dress her upper body at minimal assistance, lower body moderate assistance; grooming, standby; bathing, minimal assistance; toilet and shower transfers, minimal assistance. Toileting max, feeding standby. We are to wrap her legs with Clay wrap instead of using GIOVANNI hose. Her comprehension and language and expression are at mod I. Memory and problem solving, mod I. Speech therapy does plan to discharge by the end of the week. Car transfers will be done on Wednesday. The patient is using her left upper extremity. DISCHARGE PLAN: The patient is receiving 3 hours of PT, OT, and speech Wednesday through Wednesday. The patient has daily rehab, nursing, and physiatry involvement as well as therapeutic recreational services 4 days per week. The patient has shown functional improvement and is progressing. Please see her plan of care for specific goals. Plan is for her to discharge in approximately 4 weeks. Plan is for patient to return to home with support of her family, who lives in a neighboring community. PATIENT'S NAME: KAI POTTS [facility] AGE: 76 Y [address] ROOM: [place] [address] LOCATION: [facility] ADMIT DATE: 02/26/2017 Consultation DISCHARGE DATE: FAMILY PHYSICIAN: Mindy Ngo APRN ATTENDING PHYSICIAN: Ronnie Foy CARMEN SANDOVAL FOR RONNIE FOY MD TD/modl /[id number] d: 03/05/176 t: 03/29/17 1402, CONSULTATION REPORT
--- NOTE | ~2017-02-26 | CON ---
PATIENT'S NAME: KAI POTTS [facility] AGE: 76 Y [address] ROOM: [address] [place], [place] [address] LOCATION: [facility] ADMIT DATE: 02/26/2017 Consultation DISCHARGE DATE: FAMILY PHYSICIAN: Mindy Ngo APRN ATTENDING PHYSICIAN: Ronnie Foy DATE OF CONSULTATION: 03/16/2017 REFERRING PHYSICIAN: LUIS ROJAS MD Team members reporting include Dr. Abreu acting for Dr. Foy this week; Carmen Sandoval, transition social worker; Ana Cristina Murray, RN; Padmini Alberto, PT; Melanie Martino, PT; So Patton, OT; Nathalie Rincon, therapeutic rec; and Sister Shahnaz Campos, Pastoral Care. CURRENT STATUS: Kai is a 76-year-old woman admitted to our inpatient rehab unit following a CVA. The patient is incontinent of bladder at times. She has some bruising on her skin and takes Tylenol for pain. She is on a regular diet. Intake is good. Prealbumin is 20. The patient can complete sit to supine and supine to sit transfers independently; sit to stand, stand to sit, bed to chair, and chair to bed transfers at standby. She can walk 300 feet with a tripod cane at contact guard assistance to standby assistance. She can climb 20 stairs with 2 railings at contact guard assistance to standby assistance. The patient is having better clearance of her left foot using the AFO. Her goals have been set for modified independence to independence. The patient can dress her upper body, standby; lower body, minimal assistance; grooming and bathing, standby; toilet and shower transfers, standby; toileting, standby; and feeding, mod I. She has met 2/5 short-term OT goals. The patient can complete car transfers at contact guard assistance. 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 DISCHARGE PLAN: The patient is receiving 3 hours of PT and OT Wednesday through Wednesday. The patient has daily rehab, nursing, and physiatry involvement as well as therapeutic recreational services 4 days per week. The patient has shown functional improvement and is progressing. Please see her plan of care for specific goals. Plan is for the patient to discharge in approximately 10 days. Plan is for the patient to return to home by herself. CARMEN SANDOVAL FOR RONNIE FOY MD TD/janay PATIENT'S NAME: KAI POTTS [facility] AGE: 76 Y [address] ROOM: [place] [address] LOCATION: [facility] ADMIT DATE: 02/26/2017 Consultation DISCHARGE DATE: FAMILY PHYSICIAN: Mindy Ngo APRN ATTENDING PHYSICIAN: Ronnie Foy /[id number] d: 03/22/17 1853 t: 03/29/17 1405, CONSULTATION REPORT
--- NOTE | ~2017-02-26 | CON ---
PATIENT'S NAME: KAI POTTS [facility] AGE: 76 Y [address] ROOM: [address] [place], [place] [address] LOCATION: [facility] ADMIT DATE: 02/26/2017 Consultation DISCHARGE DATE: FAMILY PHYSICIAN: Mindy Ngo APRN ATTENDING PHYSICIAN: Ronnie Foy DATE OF CONSULTATION: 03/09/2017 REFERRING PHYSICIAN: LUIS ROJAS MD Team members reporting include Dr. Foy; Carmen Sandoval, social security specialist; Ana Cristina Murray, RN; Padmini Alberto, PT; Melanie Martino, PT; So Patton, OT; Nathalie Rincon, therapeutic rec; and sister Shahnaz Campos, Pastoral Care. CURRENT STATUS: Kai is a 76-year-old woman, admitted to our inpatient rehab unit on February 26, 2017, following a CVA. The patient does occasionally have incontinence of bladder. No skin or pain issues. The patient is on a regular diet. She is eating 75% to 100%. Prealbumin is 19. Currently at low nutritional risk. The patient can complete sit to supine and supine to sit transfers at standby assistance with cuing needed; sit to stand and stand to sit, bed to chair and chair to bed, all at standby. She can walk 150 feet using a front-wheeled walker or a tripod cane at contact guard assistance. She does use an AFO right now for her left foot. Her motor planning overall is improving. She can climb 8 stairs with 2 railings at contact guard assistance. She has met 3/5 short-term PT goals. The patient can dress her upper body, minimal to standby assistance; lower body, minimal assistance; grooming, standby; bathing, minimal to standby assistance; toilet and shower transfers, contact guard assistance; and toileting, contact guard assistance. Feeding is currently at standby assistance. She has met 4/5 short-term OT goals. Speech has been discontinued. She can complete car transfers at contact guard assistance. Very open to Pastoral Care. The patient's left upper extremity is improving. DISCHARGE PLAN: The patient is receiving 3 hours of PT and OT Wednesday through Wednesday. The patient has daily rehab, nursing, and physiatry involvement as well as therapeutic recreational services 4 days per week. The patient has shown functional improvement and is progressing. Please see her plan of care for specific goals. Plan is for the patient to discharge in approximately 3 weeks. Plan is for the patient to return to home by herself. CARMEN SANDOVAL FOR RONNIE FOY MD PATIENT'S NAME: KAI POTTS [facility] AGE: 76 Y [address] ROOM: [place] [address] LOCATION: [facility] ADMIT DATE: 02/26/2017 Consultation DISCHARGE DATE: FAMILY PHYSICIAN: Mindy Ngo APRN ATTENDING PHYSICIAN: Ronnie Foy TD/harishl /[id number] d: 03/22/17 1859 t: 03/29/17 1408, CONSULTATION REPORT
[~2017-02-26 10:36] MED LIST changes: -ASPIRIN (CHILDR81 MG PO; -COLACE100 MG PO; -GLUCOPHAGE500 MG PO; -LIPITOR40 MG PO; -LOPRESSOR25 MG PO; -MIRALAX17 GM PO; -NORVASC10 MG PO; -PRINIVIL OR ZES10 MG PO; -PROTONIX40 MG PO; -TYLENOL325 MG PO
[2017-02-27 05:38] LABS: BASOPHIL # 0.1 K/uL (0.0-0.2); BASOPHIL % 0.8 %; EOSINOPHIL # 0.3 K/uL (0.0-0.5); HEMATOCRIT 37.9 % (33.0-46.0); IMMATURE GRANULOCYTE % 0.3 %; LYMPHOCYTE # 2.1 K/uL (0.8-4.0); LYMPHOCYTE % 23.2 %; MCH 29.5 pg (27.0-34.0); MCHC 31.7 gm/dL (32.0-36.5); MCV 93.1 fl (83.0-98.0); MONOCYTE # 0.7 K/uL (0.0-1.0); MPV 9.6 fl (9.4-12.4); NEUTROPHIL # (ANC) 5.8 K/uL (1.8-7.8); NEUTROPHIL % 64.7 %; NRBC % 0 /100WBC (0-0.00); PLATELET COUNT 193 K/uL (150-450); RBC 4.07 M/uL (3.50-5.50); RDW-CV 12.8 % (11.9-14.6); WBC 8.9 K/uL (4.0-11.0)
[2017-02-27 05:56] LABS: ALBUMIN 2.7 gm/dL (3.5-5.0); ANION GAP 9.9 (10.0-19.0); POTASSIUM 3.9 mMol/L (3.7-5.1); TOTAL BILIRUBIN 0.5 mg/dL (0.0-1.5); TOTAL PROTEIN 5.8 g/dL (6.0-8.4)
[2017-03-01 07:19] LABS: BILIRUBIN URINE NEGATIVE (NEGATIVE); BLOOD URINE NEGATIVE /UL (NEGATIVE); GLUCOSE URINE NEGATIVE (NEGATIVE); KETONE URINE NEGATIVE (NEGATIVE); LEUKOCYTES URINE 25 /UL (NEGATIVE); NITRITE URINE NEGATIVE (NEGATIVE); PROTEIN URINE NEGATIVE (NEGATIVE); SPEC GRAVITY URINE 1.015 (1.003-1.035); UROBILINOGEN URINE NORMAL (NORMAL)
[2017-03-01 07:22] LABS: COLOR URINE YELLOW (YELLOW); TURBIDITY URINE CLEAR (CLEAR)
[2017-03-01 07:28] LABS: BACTERIA URINE FEW (NEGATIVE); MUCUS URINE 1+ (NEGATIVE)
[2017-03-08 04:34] LABS: ALBUMIN 2.8 gm/dL (3.5-5.0); CALCIUM 8.6 mg/dL (8.5-10.5); TOTAL BILIRUBIN 0.5 mg/dL (0.0-1.5); TOTAL PROTEIN 6.6 g/dL (6.0-8.4)
[2017-03-10 06:18] LABS: CALCIUM 8.4 mg/dL (8.5-10.5)
[2017-03-15 05:12] LABS: ALBUMIN 2.7 gm/dL (3.5-5.0); ANION GAP 13.1 (10.0-19.0); CALCIUM 8.6 mg/dL (8.5-10.5); POTASSIUM 4.1 mMol/L (3.7-5.1); TOTAL BILIRUBIN 0.5 mg/dL (0.0-1.5); TOTAL PROTEIN 6.4 g/dL (6.0-8.4)
[2017-03-23 07:10] LABS: ALK PHOS 64 IU/L (33-138); ALT 32 IU/L (12-78); ANION GAP 13.1 (10.0-19.0); AST 17 IU/L (10-40); BLOOD UREA NITROGEN 20 mg/dL (6-24); CALCIUM 8.8 mg/dL (8.5-10.5); CHLORIDE 109 mMol/L (96-110); CO2 26 mMol/L (22-32); CREATININE 0.9 mg/dL (0.5-1.1); ESTIMATED GFR (MDRD EQUATION) > 60; POTASSIUM 4.1 mMol/L (3.7-5.1); SODIUM 144 mMol/L (135-145); TOTAL BILIRUBIN 0.6 mg/dL (0.0-1.5); TOTAL PROTEIN 6.3 g/dL (6.0-8.4)
[2017-03-25] MEDS ORDERED: ASPIRIN (CHILDR81 MG PO (11:39)
[2017-03-25] MEDS ORDERED: NORVASC10 MG PO (11:39)
[2017-03-25] MEDS ORDERED: LIPITOR40 MG PO (11:42)
[2017-03-25] MEDS ORDERED: PRINIVIL OR ZES10 MG PO (11:43)
[2017-03-25] MEDS ORDERED: COLACE100 MG PO (11:43)
[2017-03-25] MEDS ORDERED: GLUCOPHAGE500 MG PO (11:44)
[2017-03-25] MEDS ORDERED: LOPRESSOR25 MG PO (11:44)
[2017-03-25] MEDS ORDERED: MIRALAX17 GM PO (11:45)
[2017-03-25] MEDS ORDERED: PROTONIX40 MG PO (11:45)
[2017-03-25] MEDS ORDERED: TYLENOL325 MG PO (11:46)
== END 2017-03-26 11:00 | disposition disaster alternative care site (69) | DRG 57 ==
LOC: GIRP 10:36
PROVIDERS: Family Medicine; ADMIT Physical Medicine & Rehabilitation
PROC: F07Z9ZZ Gait Training/Functional Ambulation Treatment (ICD-10-PCS; principal; 2017-02-26)
PROC: F08Z4ZZ Home Management Treatment (ICD-10-PCS; principal; 2017-02-26)
PROC: F07M6ZZ Therapeutic Exercise Treatment of Musculoskeletal System - Whole Body (ICD-10-PCS; principal; 2017-02-26)
PROC: F06Z6ZZ Communicative/Cognitive Integration Skills Treatment (ICD-10-PCS; principal; 2017-02-26)
DX: I69.354 Hemiplegia and hemiparesis following cerebral infarction affecting left non-dominant side (principal); E44.0 Moderate protein-calorie malnutrition; E11.51 Type 2 diabetes mellitus with diabetic peripheral angiopathy without gangrene; E66.01 Morbid (severe) obesity due to excess calories; I69.328 Other speech and language deficits following cerebral infarction; I10 Essential (primary) hypertension; R26.9 Unspecified abnormalities of gait and mobility; K21.9 Gastro-esophageal reflux disease without esophagitis; J30.9 Allergic rhinitis, unspecified; M21.372 Foot drop, left foot; R60.0 Localized edema; Z68.34 Body mass index [BMI] 34.0-34.9, adult; Z79.84 Long term (current) use of oral hypoglycemic drugs; Z79.82 Long term (current) use of aspirin
CPT/HCPCS: J1644